=== PATIENT | female | born 1980 | race Caucasian/White ===

== ENCOUNTER 2017-01-21 13:45 | Inpatient (IN) ==
--- OUTSIDE RECORDS SUMMARY | 2017-01-21 13:50 | External Medical Summary | Continuity of Care Document ---
:1980 Author Organization [facility] Address [address] [place] [id number] Phone Care Team Providers Name Role Phone Kameron Holguin MD Unavailable Unavailable Allergies, Adverse Reactions, Alerts Substance Reaction Severity Status No Known Drug Allergies Unknown Active Medications Medication Instructions Dosage Effective Dates Status Comments (start - stop) CALCIUM-MAGNESIUM- - Active ZINC (unknown strength) Vitamin take 1 tablet by Not Available - Active tablet oral route every day Zoloft 50 mg take 1 tablet by 50 MG - Active tablet oral route every day Problems Condition Effective Dates (start - stop) Clinical Status Suprvsn of w grand - multiparity, first trimester Encntr screen for infections w sexl - mode of transmiss Encounter for screening for oth - infec/parastc diseases Encounter for suprvsn of normal - , first trimester Encounter for screening of - mother 8 weeks gestation of - Suprvsn of w grand - multiparity, second trimester Encounter for suprvsn of normal - , second trimester 26 weeks gestation of - Suprvsn of w grand - multiparity, first trimester Encounter for suprvsn of normal - , first trimester 12 weeks gestation of - Suprvsn of w grand - multiparity, second trimester 21 weeks gestation of - Suprvsn of w grand - multiparity, second trimester Encounter for suprvsn of normal - , second trimester 21 weeks gestation of - Encounter for suprvsn of normal - , first trimester 12 weeks gestation of - Encounter for suprvsn of normal - , second trimester 18 weeks gestation of - Procedures Procedure Date Unknown Results Test Name Date and Time Measure Units Reference Range Abnormal Flag Comments Unknown Advance Directives Directive Yes / No Effective Date File Name Unknown Encounters Encounter Practice Location Reason(s) Diagnoses Date Provider Care Team Description For Visit Members Susan Lucas Oct- [place] In Womens 3-201 Jayde. Marie PEREZ, 7 700 [facility] [address] [place] [address] [place], 120, [id number], Lucas, [facility], tel:[phone] , [place]. tel: [phone] Susan Starr of [place] Referring In Womens w grand 2-201 Jayde. Provider: ester Petersonarity, 7 700 Kameron [facility] Medical [place], 1522, [facility] [address] of Hari Gomez, normal , [address], [address], , second Sumit Lucas, [email or web address] [place], [address]. tel: gestation of [phone] tel: , [place]. [id number] tel: [phone] Susan Starr of [place] Referring In Womens w grand 3-201 Jayde. Provider: Marie PEREZ multiparity, 7 700 Kameron Box [facility] [place], 1522, [facility] [address] for supr[place] of Hari Gomez, normal , [address], [address], [id number], second Sumit Lucas, [id number] [place], [address]. tel: gestation of [phone] tel: , [place]. [id number] tel: [phone] Susan Lucas Suprvsn of Vince-0 [place] Referring In Womens Ultrasound w grand 3-201 Jayde. Provider: Marie PEREZ, multiparity, 7 700 Kameron Somers second Medical [place], 1522, [email or web address] weeks Center [facility] [address] [place], gestation of Hari Gomez, [address], [address], [id number], Sumit Lucas, [place], [address]. tel:[phone] tel:[phone] , [place]. [id number] tel: [phone] Susan Lucas Encounter for Porter-1 [place] Referring In Womens suprvsn of normal 2-201 Jayde. Provider: Marie PEREZ, , second 7 700 Kameron Somers weeks Medical [place], 1522, gestation of [address], Hari Gomez, [address], [address], [id number], Sumit Lucas, [place], [address]. tel:[phone] tel:[phone] , [place]. [id number] tel: [phone] Susan Lucas Suprvsn of May-0 [place] Referring In Womens w grand 1-201 Jayde. Provider: Marie PEREZ, multiparity, 7 700 Kameron Somers first Medical [place], 1522, trimesterEncounte Center [facility] [address] [place], r for suprvsn of Hari Gomez, normal , [address], [address], [id number], first [email or web address] Sumit Lucas, [place], [address]. tel: of [phone] tel:[phone] , [place]. [id number] tel: [phone] Susan Lucas Encounter for May-0 [place] Referring In Womens Ultrasound suprvsn of normal 1-201 Jayde. Provider: Marie PEREZ, , first 7 700 Kameron Somers [email or web address] weeks Medical [place], 1522, gestation of [place] [address] [address] [place], Hari Gomez, [address], [address], [id number], Sumit Lucas, [place], [address]. tel:[phone] tel: , . [id number] tel: [phone] Associates [facility] Suprvsn of Jun- [place] Referring In Womens w grand 3-201 Jayde. Provider: Health CHRIS, multiparity, 7 700 Peter [facility] Medical [place], 1522, trimesterEncntr Center [address], screen for , [facility], infections w sexl [address], [address], [id number], mode of Sumit [place], [place], [address]. tel: r for screening [phone] tel: for oth , [place]. [id number] infec/parastc tel: [facility] [phone] for suprvsn of normal , first trimesterEncounte r for screening of mother8 weeks gestation of Associates Lance [place] Referring In Womens 0-201 Jayde. Provider: Marie PEREZ, 4 700 Jayde [facility], 1522, Center [facility] [address], [facility], 120, [place] [id number], Lance [place] [address], Lance BLACK, tel: [phone] [place], , . [id number]. tel: tel: [phone] Associates Lance May- Edd In Womens 7-201 Marie. Marie PEREZ, 0 700 [facility] [address], [place] [address], [facility], 120, [id number], [facility] [place], tel: [phone] , . tel: [phone] Family History Family Member Diagnosis Age At Onset Mother Hypertension Maternal Grandfather Cardiovascular Disease Maternal aunt Uterine Cancer Mother Thyroid Disorder No family history of Lung Disease No family history of Ovarian Cancer Paternal Grandmother Cancer, colon No family history of Pulmonary Embolism No family history of Kidney Disease No family history of Breast Cancer No family history of Stroke No family history of Diabetes No family history of Epilepsy No family history of Venous Thrombosis Immunizations Vaccine Date Status Comments Unknown Payers Payer name Insurance type Covered alliance party ID Authorization(s) NICO VELASQUEZ [id number] Social History Type Description Quantity Date Captured Unknown Vital Signs Date / Height Weight BMI Pulse Blood Temperature Respiratory Body Head BMI Time: Rate Pressure Rate Surface Circumference percentile Area Unknown Chief Complaint And Reason For Visit Unknown Chief Complaint And Reason For Visit Reason For Referral Reason For Referral Unknown Plan Of Care Date Type Action Status Appointment Nai Rojas BOOKED Appointment Nai Rojas BOOKED Appointment Nai Rojas BOOKED Appointment Nai Rojas BOOKED Appointment Nai Rojas BOOKED Future Order: Radiology Order Complete OB Ultrasound > 14 Ordered Weeks (53044) Future Order: Radiology Order Nuchal Translucency ([id number]) Ordered Date Type Problem Goal Intervention Status Start Date Unknown. History Of Present Illness Encounter Date Complaint History Of Present Illness This patient has no known history of present illness Functional Status Encounter Date Functional Assessment Cognitive Assessment Unknown Medications Administered Medication Instructions Dosage Effective Dates (start - stop) Status Comments Drug Treatment Unknown Instructions Date Instruction Additional Information toxoplasmosis precautions (cats / raw meat) sexual activity exercise indications for ultrasound influenza vaccine environmental / work hazards travel tobacco (ask, advise, assess, assist and arrange) alcohol illicit / recreational drugs use of any medications (including supplements, vitamins, herbs, OTC drugs) smoking counseling HIV and other routine tests risk factors identified by history anticipated course of care nutrition and weight gain counseling, special diet domestic violence seat belt use childbirth classes / hospital facilities hospital registration genetic testing new ob handbook Zika virus assessment & precautions HIV and other routine tests risk factors identified by history anticipated course of care nutrition and weight gain counseling, special diet toxoplasmosis precautions (cats / raw meat) sexual activity exercise indications for ultrasound influenza vaccine environmental / work hazards travel use of any medications (including supplements, vitamins, herbs, OTC drugs) seat belt use hospital registration genetic testing
--- OUTSIDE RECORDS SUMMARY | 2017-01-21 13:50 | External Medical Summary | Continuity of Care Document ---
:1980 Author Organization [facility] Address [address] [place] [id number] Phone Care Team Providers Name Role Phone [...] Status Suprvsn of w grand - multiparity, second [...] weeks gestation of - Procedures Procedure Date OB Visit No Charge Hemoglobin count, colorimetric Hematocrit blood count Glucose test Venpnctr fngr/heel/ear stick routne Results Test Name Date and Time Measure Units Reference Range Abnormal Flag Comments Panel Description: Glucose [Mass/volume] in Serum or Plasma --1 hour post 50 g glucose PO GLUCOSE, 124 mg/dL <140 N Test performed at [facility] S[facility]EN 15:07:00 [id number] (50G)-[address] [place] [address]Xjqzmjth: GIGI SUH DO,MPH Panel Description: HEMOGLOBIN + HEMATOCRIT HEMOGLOBIN 15:07:00 10.3 g/dL 11.7-15.5 L HEMATOCRIT 15:07:00 30.3 % 35.0-45.0 L Test performed at [facility] [id number] [place] [address]Hffjqryt: GIGI SUH DO,MPH Advance Directives Directive Yes / No Effective Date File Name Unknown Encounters Encounter Practice Location Reason(s) Diagnoses Date Provider Care Team Description For Visit Members Associates [facility] Suprcarinen of [place] Referring In Womens w grand 2-201 Jayde. Provider: Health [place], multiparity, 7 700 Peter [address] [facility], 1522, [facility] [address] for suprvsn of Hari Gomez [place], normal , [address], [address], [id number], second Sumit Lucas, [id number] [place], [address]. tel:[phone] gestation of [id number] tel:[phone] , [place]. [id number] tel: [phone] Associates [facility] Suprvsn of Vince-0 [place] Referring In Womens w grand 3-201 Jayde. Provider: Marie PEREZ, multiparity, 7 700 Kameron Somers second Medical [place], 1522, [facility] [address] [place], r for suprvsn of Hari Gomez, normal , [address], [address], [id number], second Sumit Lucas, [id number] [place], [address]. tel: gestation of [phone] tel: , [place]. [id number] tel: [phone] Associates [facility] Suprvsn of Vince-0 [place] Referring In Womens Ultrasound w grand 3-201 Jayde. Provider: Marie PEREZ, multiparity, 7 700 Kameron Somers second [facility], 1522, [email or web address] weeks Center [address], gestation of Hari Gomez, [address], [address], [id number], Sumit Lucas, [place], [address]. tel:[phone] tel: , [place]. [id number] tel: [phone] Associates Lance Encounter for Porter-1 [place] Referring In Womens suprvsn of normal 2-201 Jayde. Provider: Marie PEREZ, , second 7 700 Kameron DUMAS Box [email or web address] weeks Medical [place], 1522, gestation of Center [address] [place], Hari Gomez, [address], [address], [id number], Sumit Lucas, [place], [address]. tel:[phone] tel: , [place]. [id number] tel: [phone] Associates [facility] Suprvsn of May-0 [place] Referring In Womens w grand 1-201 Jayde. Provider: Marie PEREZ, multiparity, 7 700 Kameron DUMAS Box first Medical [place], 1522, trimesterEncounte Center [address], r for suprvsn of Hari Gomez, normal , [address], [address], [id number], first [email or web address] Sumit [place], [place], [address]. tel: of [phone] tel: , [place]. [id number] tel: [phone] Associates Lance Encounter for [place] Referring In Womens Ultrasound suprvsn of normal 1-201 Jayde. Provider: Health [place], , first 7 700 Peter PO Box [email or web address] weeks Medical [place], 1522, gestation of Center [address], Hari Gomez [place], [address], [address], [id number], Shaila Lucasherson, [place], [address]. tel:[phone] tel: , [place]. [id number] tel: [phone] Susan Lucas Suprvsn of Jun- [place] Referring In Womens w grand 3-201 Jayde. Provider: Health CHRIS, multiparity, 7 700 Peter PO Box first Medical [place], 1522, trimesterEncntr Center [facility] S [place], screen for Hari [place], infections w sexl [address], [address], [id number], mode of Sumit [place], [place], [address]. tel: r for screening [phone] tel: for [facility] , [place]. [id number] infec/parastc tel: diseasesEncounter [phone] for suprvsn of normal , first trimesterEncounte r for screening of mother8 weeks gestation of Associates Lance [place] Referring In Womens 0-201 Jayde. Provider: Health CHRIS, 4 700 Jayde PO Box Medical [place] L, 1522, Center [facility] [address], [facility], 120, [place] [id number], [place] [address], Lance BLACK, tel:[phone] [place], [address] , [place]. [id number]. tel: tel: [phone] Susan Lucas May- Edd In Womens 7-201 Mraie. Health [place], 0 700 PO Box Medical [address], [place] [address], [facility], 120, [id number], [facility] [place], tel:[phone] , . tel:[phone] Family History Family Member Diagnosis Age At [...] Unknown Payers Payer name Insurance type Covered constitution party ID Authorization(s) [facility] [id number] Social History Type Description Quantity Date Captured Alcohol Use Details No Caffeine Use Details Unknown Tobacco Use Status Unknown Smoking Status Never smoker Vital Signs Date / Height Weight BMI [...] Complete OB Ultrasound > 14 Ordered Weeks (78074) Future Order: Radiology Order Nuchal Translucency ([id number]) Ordered Date Type Problem Goal Intervention Status [...] medications (including supplements, vitamins, herbs, OTC drugs) HIV and other routine tests risk factors identified by history anticipated course of care nutrition and weight gain counseling, special diet smoking counseling domestic violence seat belt use childbirth classes [...]
--- OUTSIDE RECORDS SUMMARY | 2017-01-21 13:50 | External Medical Summary | Continuity of Care Document ---
:1980 Author Organization [facility] Address [address] [place] [phone] Phone Care Team Providers Name Role Phone Kameron Holguin MD Unavailable Unavailable Allergies, Adverse Reactions, Alerts Substance Reaction Severity Status No Known Drug Allergies Unknown Active Medications Medication Instructions Dosage Effective Dates Status Comments (start - stop) Vitamin take 1 tablet by Not Available [...] - mode of transmiss Encounter for screening of - mother 8 weeks gestation of - Encounter for suprvsn of normal - , first trimester Encounter for screening for oth - infec/parastc diseases Suprvsn of w grand - multiparity, first [...] weeks gestation of - Procedures Procedure Date Ultrasound exam of preg uterus, complete Results Test Name Date and Time Measure Units Reference Range Abnormal Flag Comments Unknown Advance Directives Directive Yes / No Effective Date File Name Unknown Encounters Encounter Practice Location Reason(s) Diagnoses Date Provider Care Team Description For Visit Members Susan Jamesn of [place] Referring In Womens w grand 3-201 Jayde. Provider: Marie PEREZ, multiparity, 7 700 Kameron [address] Box second Medical [place], 1522, trimesterEncounte Center [address], for suprvsn of Hari Gomez, normal , [address], [address], [id number], second Sumit Lucas, [email or web address] [place], [address]. tel: gestation of [phone] tel: , [place]. [id number] tel: [phone] Susan Starr of [place] Referring In Womens Ultrasound w grand 3-201 Jayde. Provider: Marie PEREZ, multiparity, 7 700 Kameron [address] Box second Medical [place], 1522, [id number] weeks Center [address], gestation of Hari Gomez, [address], [address], [id number], Sumit Lucas, [facility] [place], [address]. tel:[phone] tel:[phone] , [place]. [id number] tel: [phone] Susan Lucas Encounter for [place] Referring In Womens suprvsn of normal 2-201 Jayde. Provider: Marie PEREZ, , second 7 700 Kameron PO Box [email or web address] weeks Medical [place], 1522, gestation of Center [address], Hari Gomez, [address], [address], [id number], Sumit Lucas, [facility] [place], [address]. tel:[phone] tel: , [place]. [id number] tel: [phone] Susan Jamesn of May-0 [place] Referring In Womens w grand 1-201 Jayde. Provider: Health CHRIS, multiparity, 7 700 Kameron Somers [facility] [place], 1522, trimesterEncounte Center [address] [place], r for suprvsn of Hari Gomez, normal , [address], [address], [id number], first [email or web address] Sumit [place], [place], [address]. tel: of [phone] tel: , [place]. [id number] tel: [phone] Associates Lance Encounter for July-0 [place] Referring In Womens Ultrasound suprvsn of normal 1-201 Jayde. Provider: Marie PEREZ, , first 7 700 Kameron Somers [id number] weeks Medical [place], 1522, gestation of Center [address] [place], Hari Gomez, [address], [address], [id number], Sumit Lucas, [facility] [place], [address]. tel:[phone] tel: , [place]. [id number] tel: [phone] Susan Lucas Suprvsn of Apr-0 [place] Referring In Womens w grand 3-201 Jayde. Provider: Marie PEREZ, multiparity, 7 700 [facility]on [facility] 1522, trimesterEncntr Center [address], screen for Hari Gomez, infections w sexl [address], [address], [id number], mode of Sumit Lucas, [facility] [place], [address]. tel: r for [phone] tel: screening of , [place]. [id number] mother8 weeks tel: gestation of [phone] pregnancyEncounte r for suprvsn of normal , first trimesterEncounte r for screening for oth infec/parastc diseases Susan Lucas Fe- [place] Referring In Womens 0-201 Jayde. Provider: Marie PEREZ, 4 700 Jayde PO Box Medical [place] L, 1522, Center [facility] [address] Medical [place], 120, [place] [id number], Hari Lucas 120, [place] Lance BLACK tel: [phone] [place], , [place]. [id number]. tel: tel: [phone] Associates Lance May- Edd In Womens 7-201 Marie. Health [place], 0 700 PO Box [facility] 15[address], [place] [address] [place], 120, [id number], Lucas, [place], tel: [phone] , [place]. tel: [phone] Family History Family Member Diagnosis Age At [...] Insurance type Covered alliance party ID Authorization(s) [facility] [id number] Social History Type Description Quantity Date Captured Unknown Vital Signs Date / Height Weight BMI Pulse Blood Temperature Respiratory Body Head BMI Time: Rate Pressure Rate Surface Circumference percentile Area Unknown Chief Complaint And Reason For Visit Unknown Chief Complaint And Reason For Visit Reason For Referral Reason For Referral Unknown Plan Of Care Date Type Action Status Appointment Nai Rojas BOOKED Future Order: Radiology Order Complete OB Ultrasound > 14 Ordered Weeks (58699) Future Order: Radiology Order Nuchal Translucency ([id number]) Ordered Date Type Problem Goal Intervention Status [...] and arrange) alcohol illicit / recreational drugs HIV and other routine tests risk factors identified by history anticipated course of care nutrition and weight gain counseling, special diet use of any medications (including supplements, vitamins, herbs, OTC drugs) smoking counseling domestic violence seat belt use [...]
--- OUTSIDE RECORDS SUMMARY | 2017-01-21 13:51 | External Medical Summary | Continuity of Care Document ---
:1980 Author Organization [facility] Allergies Active Description Code Type Severity Reaction Onset Reported/ Identified Relationship Clinical to Patient Status Yes No Known 40959 3 N/A N/A Drug 0 Allergies Medications Problems Date Dx Coded Attending Type Code Diagnosis Diagnosed By 07/26/2016 Jayde Dale Z34.81 Encounter for L suprvsn of normal , first trimester 07/26/2016 Jayde Dale Z3A.12 12 weeks gestation L of 09/27/2016 Jayde Dale O09.42 Suprvsn of L w grand multiparity, second trimester 09/27/2016 Jayde Dale Z3A.21 21 weeks gestation L of 12/08/2016 Jayde Dale O09.43 Suprvsn of L w grand multiparity, third trimester 12/08/2016 Jayde Dale O09.893 Supervision of L other high risk pregnancies, third trimester 12/08/2016 Jayde Dale Z3A.32 32 weeks gestation L of Procedures Code Description Performed By Performed On 07/26/2016 07334 Ultrasound, Nuchal Translucency Measurement 09/27/2016 60154 Ultrasnd exam of preg uterus, compl 12/08/2016 17553 biophys prfl w/o nstress test 12/08/2016 51802 Immuniz admnin, 1 vac, sngl/combo TDAP 12/08/2016 71713 VACCINE >7 IM Results Encounters ACCT No. Visit Discharge Status Pt. Type Provider Facility Loc./Unit Complaint Date/Time [id number] 12/22/2016 12/22/2016 [facility] Outpatient [place], 11:15:00 23:59:59 Jayde Piña [id number] 12/08/2016 12/08/2016 [facility] Outpatient [place], 10:10:00 23:59:59 Jayde Piña [id number] 12/08/2016 12/08/2016 [facility] Outpatient [place], 09:45:00 23:59:59 Jayde L [id number] 11/24/2016 11/24/2016 [facility] Outpatient [place], 10:30:00 23:59:59 Jayde L [id number] 10/28/2016 10/28/2016 [facility] Outpatient [place], 08:09:00 23:59:59 Jayde L [id number] 10/27/2016 10/27/2016 [facility] Outpatient [place], 10:15:00 23:59:59 Jayde L [id number] 09/27/2016 09/27/2016 [facility] Outpatient [place], 15:30:00 23:59:59 Jayde L [id number] 09/27/2016 09/27/2016 CLS Outpatient [place], 15:15:00 23:59:59 Jayde L [id number] 09/06/2016 09/06/2016 [facility] Outpatient [place], 11:30:00 23:59:59 Jayde L [id number] 07/30/2016 07/30/2016 [facility] Outpatient [place], 08:12:00 23:59:59 Jayde L [id number] 07/26/2016 07/26/2016 C[facility] Outpatient [place], 11:30:00 23:59:59 Jayde L [id number] 07/26/2016 07/26/2016 C[facility] Outpatient [place], 11:15:00 23:59:59 Jayde L [id number] 06/28/2016 06/28/2016 [facility] Outpatient [place], 15:00:00 23:59:59 Jayde L [id number] 01/12/2017 Document 10:15:00 Registration [id number] 01/05/2017 Document 11:15:00 Registration
--- OUTSIDE RECORDS SUMMARY | 2017-01-21 13:51 | External Medical Summary | Continuity of Care Document ---
:1980 Author Organization [facility] Address [address] [place] [id number] Phone Care Team Providers Name Role Phone [...] - Active tablet oral route every day iron ER 325 mg (65 take 1 by Oral route Not Available - Active mg iron) 2 times every day capsule,extended release Problems Condition Effective Dates (start - stop) Clinical Status Suprvsn of w grand - multiparity, third trimester Encounter for suprvsn of normal - , third trimester 32 weeks gestation of - Suprvsn of w [...] - Suprvsn of w grand - multiparity, third trimester Encounter for suprvsn of normal - , third trimester 30 weeks gestation of - Suprvsn of w [...] - Suprvsn of w grand - multiparity, third trimester Supervision of other high risk - pregnancies, third trimester 32 weeks gestation of - Suprvsn of w grand - multiparity, third trimester Supervision of other high risk - pregnancies, third trimester 34 weeks gestation of - Encounter for suprvsn of normal - , first trimester 12 weeks gestation of - Encounter for suprvsn of normal - , second trimester 18 weeks gestation of - Procedures Procedure Date Immuniz admnin, 1 vac, sngl/combo 19 Yrs + TDAP VACCINE >7 IM OB Visit No Charge Results Test Name Date and Time Measure Units Reference Range Abnormal Flag Comments Unknown Advance Directives Directive Yes / No Effective Date File Name Unknown Encounters Encounter Practice Location Reason(s) Diagnoses Date Provider Care Team Description For Visit Members Associates Lance [place] Referring In Womens w grand Jayde. Provider: Marie PEREZ, multiparity, 7 700 [facility], 1522, [facility] [address] of other high Hari Gomez, risk pregnancies, [address], [address], [id number], third [id number] Sumit [place], [place], [address]. tel:+[phone] of tel: , [place]. [id number] tel: [phone] Associates Lance Starr of Sep-1 [place] Referring In Womens w grand 3-201 Jayde. Provider: Marie PEREZ, multiparity, 7 700 Kameron Somers third [facility] [place], 1522, [facility] [address] for suprvsn of Hari Gomez, normal , [address], [address], [id number], third [id number] Sumit [place], [place], [address]. tel: of tel: , [place]. [id number] tel: [phone] Associates Lance Starr of Sep-1 [place] Referring In Womens Ultrasound w grand 3-201 Jayde. Provider: Marie PEREZ, multiparity, 7 700 Kameron Somers third [facility] [place], 1522, [facility] [address] [place], ion of other high Hari Gomez, risk pregnancies, [address], [id number], third [id number] Sumit [place], [place], [address]. tel: of tel: , [place]. [id number] tel: [phone] Susan Starr of Aug-3 [place] Referring In Womens w grand 0-201 Jayde. Provider: Mraie PEREZ, multiparity, 7 700 Kameron Somers [facility] [place], 1522, [facility] [address] for suprvsn of Hari Gomez, normal , [address], [address], [id number], third [id number] Sumit [place], [place], [address]. tel: of tel: , [place]. [id number] tel: [phone] Associates Lance Starr of Aug-0 [place] Referring In Womens w grand 2-201 Jayde. Provider: Marie PEREZ multiparity, 7 700 Kameron Somers [facility] [place], 1522, [facility] [address] [place], r for suprvsn of Hari Gomez, normal , [address], [address], [id number], second Sumit Lucas, [id number] [place], [address]. tel: gestation of [phone] tel: , [place]. [id number] tel: [phone] Susan Lucas Suprvsn of Sep-0 [place] Referring In Womens w grand 3-201 Jayde. Provider: Health PA, multiparity, 7 700 Kameron DUMAS Lizbet second Medical [place], 1522, [facility] [address] [place], r for suprvsn of Hari Gomez, normal , [address], [address], [id number], second Sumit Lucas, [email or web address] [place], [address]. tel: gestation of tel: , [place]. [id number] tel: [phone] Susan Lucas Suprcarinen of Sep-0 [place] Referring In Womens Ultrasound w grand 3-201 Jayde. Provider: Health PA, multiparity, 7 700 Kameron DUMAS Lizbet [facility], 1522, [id number] weeks Center [address] [place], gestation of Hari Gomez, [address], [address], [id number], Sumit Lucas, [place], [address]. tel: tel: , [place]. [id number] tel: [phone] Susan Lucas Encounter for Porter-1 [place] Referring In Womens suprvsn of normal 2-201 Jayde. Provider: Health PA, , second 7 700 Kameron DUMAS Box [id number] weeks Medical [place], 1522, gestation of Center [address] [place], Hari Gomez, [address], [address], [id number], Sumit Lucas, [place], [address]. tel: tel: , [place]. [id number] tel: [phone] Susan Lucas Suprcarinen of July-0 [place] Referring In Womens w grand 1-201 Jayde. Provider: Health CHRIS, multiparity, 7 700 Kameron Somers [facility], 1522, trimesterEncounte Center [address] [place], r for suprvsn of Hari Gomez, normal , [address], [address], [id number], first [id number] Sumit [place], [place], [address]. tel: of [phone] tel: , [place]. [id number] tel: [phone] Associates Lance Encounter for July-0 [place] Referring In Womens Ultrasound suprvsn of normal 1-201 Jayde. Provider: Marie PEREZ, , first 7 700 Kameron Somers [id number] weeks Medical [place], 1522, gestation of Center [address] [place], Hari Gomez, [address], [address], [id number], Sumit Lucas, [place], [address]. tel:[phone] tel: , [place]. [id number] tel: [phone] Associates Lance Suprvsn of Apr-0 [place] Referring In Womens w grand 3-201 Jayde. Provider: Marie PEREZ, multiparity, 7 700 Kameron Somers [facility], 1522, trimesterEncntr Center [address] [place], screen for Hari Gomez, infections w sexl [address], [address], [id number], mode [place], [place], [address]. tel: r for screening [phone] tel: for [facility] , . [id number] infec/parastc tel: [facility] [phone] for suprvsn of normal , first trimesterEncounte r for screening of mother8 weeks gestation of Associates Lance Apr- [place] Referring In Womens 0-201 Jayde. Provider: Marie PEREZ, 4 700 Jayde PO Box Medical [place], 1522, Center [facility] [place], Hari Gomez [place], 120, [place] , Hari Lucas 120, [place] Lance BLACK, tel: [phone] [place], , [place]. [id number]. tel: tel: [phone] Susan Lucas May- Edd In Womens 7-201 Marie. Health [place], 0 700 [address] [facility] 1522, [address] [place], 120, [id number], Lucas, SOFIA, tel: [phone] , . tel: [phone] Family History Family Member Diagnosis Age At [...] Venous Thrombosis Immunizations Vaccine Date Status Comments Tdap completed Source: New Immunization Record Payers Payer name Insurance type Covered democrat ID Authorization(s) [facility] [id number] [facility] [id number] Social History Type Description Quantity Date Captured [...] Of Care Date Type Action Status Appointment aNi Rojas BOOKED Future Order: Radiology Order Complete OB Ultrasound > 14 Ordered Weeks (87232) Future Order: Radiology Order Biophysical Profile without NST Ordered ([id number]) Future Order: Radiology Order Nuchal Translucency ([id number]) Ordered Date Type Problem Goal Intervention Status [...]
--- OUTSIDE RECORDS SUMMARY | 2017-01-21 13:51 | External Medical Summary | Continuity of Care Document ---
:1980 Author Organization [facility] Address [address] [place] [phone] Phone Care Team Providers Name Role Phone Kameron Holguin MD Unavailable Unavailable Allergies, Adverse Reactions, Alerts Substance Reaction Severity Status No Known Drug Allergies Unknown Active Medications Medication Instructions Dosage Effective Dates Status Comments (start - stop) CALCIUM-MAGNESIUM- - Active ZINC (unknown strength) iron ER 325 mg (65 take 1 by Oral route Not Available - Active mg iron) 2 times every day capsule,extended release Vitamin take 1 tablet by Not Available [...] suprvsn of normal - , second trimester Encounter for suprvsn of normal - , first trimester 12 weeks gestation of - Encounter for suprvsn of normal - , second trimester 18 weeks gestation of - Suprvsn of w grand - multiparity, third trimester Supervision of other high risk - pregnancies, third trimester 32 weeks gestation of - Suprvsn of w grand - multiparity, third trimester 32 weeks gestation of - Encounter for suprvsn of normal - , third trimester Procedures Procedure Date OB Visit No Charge Results Test Name Date and Time Measure Units Reference Range Abnormal Flag Comments Unknown Advance Directives Directive Yes / No Effective Date File Name Unknown Encounters Encounter Practice Location Reason(s) Diagnoses Date Provider Care Team Description For Visit Members Associates Lance Jamesn of Nov- [place] Referring In Womens w grand 3- Jayde. Provider: shiraz Peterson, 7 700 Kameron Somers third [id number] Medical [place], 1522, weeks gestation [address], of [place], [facility] [address], [address], [id number], r for suprvsn of Sumit Lucas, [place] , [place], [address]. tel:[phone] third trimester [phone] tel:[phone] , [place]. [id number] tel: [phone] Associates Lance Suprvsn of Sep-1 [place] Referring In Womens Ultrasound w grand 3-201 Jayde. Provider: shiraz Peterson, 7 700 Kameron DUMAS Box third Medical [place], 1522, trimesterSupervis Center [address] [place], ion of other high Hari Gomez, risk pregnancies, [address], [address], [id number], third [id number] Sumit [place], [place], [address]. tel: of [phone] tel: , [place]. [id number] tel: [phone] Associates Lance Suprcarinen of 3 [place] Referring In Womens w grand 0-201 Jadye. Provider: Health CHRIS, multiparity, 7 700 Kameron ALESIA Somers [facility], 1522, [facility] [address] [place], r for suprvsn of Hari Gomez, normal , [address], [address], [id number], third [id number] Sumit [place], [place], [address]. tel: of tel: , [place]. [id number] tel: [phone] Susan Lucas Suprcarinen of 0 [place] Referring In Womens w grand 2-201 Jayde. Provider: Marie PEREZ, multiparity, 7 700 Kameron DUMAS [facility], [facility] [address] [place], r for suprvsn of Hari Gomez, normal , [address], [address], [id number], second Sumit Lucas, [id number] [place], [address]. tel: gestation of [phone] tel: , [place]. [id number] tel: [phone] Susan Lucas Suprvsn of 0 [place] Referring In Womens w grand 3-201 Jayde. Provider: Marie PEREZ, multiparity, 7 700 Kameron Somers [facility], 1522, [id number] weeks Center [address] [place], gestation of Hari Gomez, pregnancyEncounte [address], [address], [id number], r for suprvsn of [place]it [place], [place] , [place], [address]. tel: second trimester tel: , US. [id number] tel: [phone] Associates Lance Suprvsn of Vince-0 [place] Referring In Womens Ultrasound w grand 3-201 Jayde. Provider: Marie PEREZ, multiparity, 7 700 Kameron DUMAS Box second [facility] [place], 1522, [id number] weeks Center [address] [place], gestation of Hari Gomez, [address], [address], [id number], Sumit Lucas, [place], [address]. tel:[phone] tel: [phone] , [place]. [id number] tel: [phone] Associates Lance Encounter for Porter-1 [place] Referring In Womens suprvsn of normal 2-201 Jayde. Provider: Marie PEREZ, , second 7 700 Kameron [address] [id number] weeks Medical [place], 1522, gestation of Center [address] [place], Hari Gomez, [address], [address], [id number], Sumit Lucas, [place], [address]. tel:[phone] tel:[phone] , [place]. [id number] tel: [phone] Susan Lucas Suprvsn of May-0 [place] Referring In Womens w grand 1-201 Jayde. Provider: Marie PEREZ, multiparity, 7 700 Kameron Somers first Medical [place], 1522, trimesterEncounte Center [address] [place], r for suprvsn of Hari Gomez, normal , [address], [address], [id number], first [id number] Sumit [place], [place], [address]. tel: of [phone] tel:[phone] , [place]. [id number] tel: [phone] Associates Lance Encounter for May-0 [place] Referring In Womens Ultrasound suprvsn of normal 1-201 Jayde. Provider: Marie PEREZ, , first 7 700 Kameron [address] [id number] weeks Medical [place], 1522, gestation of Center [facility] S [place], Hari Gomez, [address], [address], [id number], Sumit Lucas, [place], [address]. tel: [phone] tel: , . [id number] tel: [phone] Susan Lucas Suprvsn of Jun-0 [place] Referring In Womens w grand 3-201 Jayde. Provider: Health CHRIS, multiparity, 7 700 [facility] Medical [place], 1522, trimesterEncntr Center [address] [place], screen for , Hari [facility], infections w sexl [address], [address], [id number], mode of [place]it [place], [place], [address]. tel: r for screening [phone] tel: for [facility] , . [id number] infec/parastc tel: diseasesEnclos angeles community hospitaler [phone] for suprvsn of normal , first trimesterEncounte r for screening of mother8 weeks gestation of Associates Lance [place] Referring In Womens 0-201 Jayde. Provider: Marie PEREZ, 4 700 Jayde [facility] L, 1522, Center [address], [facility], 120, [place] [id number], Lance [place] [address], Lance BLACK, tel: [phone] [place], , . [id number]. tel: tel: [phone] Susan Lucas May- Edd In Womens 7-201 Marie. Health CHRIS, 0 700 [facility] Medical 1522, [place] [address], [facility], 120, [id number], SOFIA, tel: [phone] , . tel: [phone] Family History Family Member Diagnosis Age At [...] Record Payers Payer name Insurance type Covered constitution party ID Authorization(s) [facility] [id number] [facility] [id number] Social History Type Description Quantity Date Captured [...] Complete OB Ultrasound > 14 Ordered Weeks (96751) Future Order: Radiology Order Nuchal Translucency ([id number]) Ordered Future Order: Radiology Order Biophysical Profile without NST Ordered ([id number]) Date Type Problem Goal Intervention Status Start [...]
--- OUTSIDE RECORDS SUMMARY | 2017-01-21 13:51 | External Medical Summary | Continuity of Care Document ---
:1980 Author Organization [facility] Address [address] [place] [phone] Phone Care Team Providers Name Role Phone [...] Care Team Description For Visit Members Susan Starr of [place] Referring In Womens w grand 3-201 Jayde. Provider: Marie PEREZ, multiparity, 7 700 Kameron PO Box second Medical [place], 1522, trimesterEncounte Center [address], for suprvsn of Hari Gomez, normal , [address], [address], [id number], second Sumit Lucas, [id number] [place], [address]. tel: gestation of [phone] tel: , [place]. [id number] tel: [phone] Susan Starr of [place] Referring In Womens Ultrasound w grand 3-201 Jayde. Provider: Marie PEREZ, multiparity, 7 700 Kameron PO Box second Medical [place], 1522, [id number] weeks Center [address] [place], gestation of Hari Gomez, [address], [address], [id number], Sumit Lucas, [place], [address]. tel:[phone] tel:[phone] , [place]. [id number] tel: [phone] Susan Lucas Encounter for [place] Referring In Womens suprvsn of normal 2-201 Jayde. Provider: Marie PEREZ, , second 7 700 Kameron [address] [id number] weeks Medical [place], 1522, gestation of Center [address] [place], Hari Gomez, [address], [address], [id number], Sumit Lucas, [place], [address]. tel:[phone] tel: , [place]. [id number] tel: [phone] Susan Jamesn of [place] Referring In Womens w grand 1-201 Jayde. Provider: Health CHRIS, multiparity, 7 700 Kameron Somers [facility] [place], 1522, trimesterEncounte Center [address], r for suprvsn of Hari Gomez, normal , [address], [address], [id number], first [id number] Sumit [place], [place], [address]. tel: of [phone] tel: , [place]. [id number] tel: [phone] Susan Lucas Encounter for July-0 [place] Referring In Womens Ultrasound suprvsn of normal 1-201 Jayde. Provider: Health CHRIS, , first 7 700 Kameron Somers [id number] weeks Medical [place], 1522, gestation of Center [address] [place], Hari Gomez, [address], [address], [id number], Noelle Lucasson, [place], [address]. tel:[phone] tel: , [place]. [id number] tel: [phone] Susan Lucas Suprvsn of Apr-0 [place] Referring In Womens w grand 3-201 Jayde. Provider: Marie PEREZ, multiparity, 7 700 Kameron Somers [facility] 1522, trimesterEncntr Center [address], screen for Hari Gomez, infections w sexl [address], [address], [id number], mode of [place]it [place], [place], [address]. tel: r for [phone] tel: screening of , [place]. [id number] mother8 weeks tel: gestation of [phone] pregnancyEncounte r for suprvsn of normal , first trimesterEncounte r for screening for oth infec/parastc diseases Susan Lucas Apr- [place] Referring In Womens 0-201 Jayde. Provider: Marie PEREZ, 4 700 Jayde PO Box Medical [place], 1522, Center [facility] [address] Medical [place], 120, [place] , Hari Lucas 120, [place] Lance BLACK, tel: [phone] [place], , [place]. [id number]. tel: tel: [phone] Associates Lance May- Edd In Womens 7-201 Marie. Health [place], 0 700 PO Box [facility] 1522, [address], Hari [place], 120, [id number], Lucas, [place], tel: [phone] , . tel: [phone] Family History Family Member Diagnosis Age At [...] Unknown Payers Payer name Insurance type Covered green party ID Authorization(s) [facility] [id number] Social History Type Description Quantity Date Captured Alcohol Use Details No Caffeine Use Details Unknown Tobacco Use Status Unknown Smoking Status Never smoker Vital Signs Date / Height Weight BMI Pulse Blood Temperature Respiratory Body Head BMI Time: Rate Pressure Rate Surface Circumference percentile Area 166.40 27.6 / lbs 9 mm[Hg] 3:42 kg/m PM eter (2) Chief Complaint And Reason For Visit Unknown Chief Complaint And Reason For Visit Reason For Referral Reason For Referral Unknown Plan Of Care Date Type Action Status Appointment Nai Rojas BOOKED Future Order: Radiology Order Complete OB Ultrasound > 14 Ordered Weeks ([id number]) Future Order: Radiology Order Nuchal Translucency ([id number]) Ordered Date Type Problem Goal Intervention Status [...]
--- OUTSIDE RECORDS SUMMARY | 2017-01-21 13:51 | External Medical Summary | Continuity of Care Document ---
:1980 Author Organization [facility] Address [address] [place] [id number] Phone Care Team Providers Name Role Phone [...] third trimester 34 weeks gestation of - Suprvsn of w [...] suprvsn of normal - , third trimester 36 weeks gestation of - Suprvsn of w [...] Team Description For Visit Members Associates Lance Starr of [place] Referring In Womens w grand Jayde. Provider: Health CHRIS, multiparity, 7 700 [facility], 1522, [facility] [address] for suprvsn of Hari Gomez, normal , [address], [address], [id number], third [email or web address] Sumit [place], [place] weeks gestation [place], [place], [address]. tel: of [phone] tel: , [place]. [id number] tel: [phone] Associates Lance Jamesn of Sep-2 [place] Referring In Womens w grand 7-201 Jayde. Provider: Marie PEREZ, multiparity, 7 700 Kameron Somers [facility], 1522, [facility] [address], ion of other high Hari Gomez, risk pregnancies, [address], [address], [id number], third [email or web address] Sumit [place], [place], [address]. tel: of [phone] tel: , [place]. [id number] tel: [phone] Susan Starr of Sep-1 [place] Referring In Womens w grand 3-201 Jayde. Provider: Marie PEREZ, multiparity, 7 700 Kameron Somers [facility], 1522, [facility] Center [address], alexis for suprvsn of Hari Gomez, normal , [address], [address], [id number], third [email or web address] Sumit [place], [place], [address]. tel: of [phone] tel: , [place]. [id number] tel: [phone] Susan [place] Suprcarinen of Sep-1 [place] Referring In Womens Ultrasound w grand 3-201 Jayde. Provider: Marie PEREZ, multiparity, 7 700 [facility], [facility] [address], ion of other high Hari Gomez, risk pregnancies, [address], [address], [id number], third [email or web address] Sumit [place], [place], [address]. tel: of [phone] tel: , [place]. [id number] tel: [phone] Susan Lucas Suprcarinen of Aug-3 [place] Referring In Womens w grand 0-201 Jayde. Provider: Marie PEREZ, multiparity, 7 700 Kameron Somers third [facility] [place], 1522, [facility] Center [address], r for suprvsn of Hari Gomez, normal , [address], [address], [id number], third [email or web address] Sumit [place], [place], [address]. tel: of [phone] tel: , [place]. [id number] tel: [phone] Associates Lance Suprvsn of Oct-0 [place] Referring In Womens w grand 2-201 Jayde. Provider: Health CHRIS, multiparity, 7 700 Kameron Somers second [facility] [place], 1522, [facility] [address], alexis for suprvsn of Hari Gomez, normal , [address], [address], [id number], second Sumit [place], [place] [email or web address] [place], [address]. tel: gestation of [phone] tel: , [place]. [id number] tel: [phone] Susan [place] Sup[place] of Sep-0 [place] Referring In Womens w grand 3-201 Jayde. Provider: Marie PEREZ, multiparity, 7 700 Kameron Somers second [facility] [place], 1522, [facility]En[facility] Center [address], r for suprvsn of Hari Gomez, normal , [address], [address], [id number], second Sumit [place], [place] [email or web address] [place], [address]. tel: gestation of [phone] tel: , [place]. [id number] tel: [phone] Susan [place] Suprvsn of Sep-0 [place] Referring In Womens Ultrasound w grand 3-201 Jayde. Provider: Marie PEREZ, multiparity, 7 700 Kameron Somers second [facility] [place], 1522, [email or web address] weeks Center [address] [place], gestation of Hari Gomez, [address], [address], [id number], Sumit [place], [place], [address]. tel: tel: , [place]. [id number] tel: [phone] Associates Lance Encounter for Porter-1 [place] Referring In Womens suprvsn of normal 2-201 Jayde. Provider: Health CHRIS, , second 7 700 Kameron [address] [email or web address] weeks Medical [place], 1522, gestation of Center [address], Hari Gomez, [address], [address], [id number], Sumit Lucas, [facility] [place], [address]. tel:[phone] tel: , [place]. [id number] tel: [phone] Associates Lance Suprvsn of May-0 [place] Referring In Womens w grand 1-201 Jayde. Provider: Marie PEREZ, multiparity, 7 700 Kameron Somers [facility], 1522, trimesterEncloma linda [facility] [place] [id number] [place], r for suprvsn of Hari Gomez, normal , [address], [address], [id number], first [email or web address] Sumit [place], [place], [address]. tel: of [phone] tel:[phone] , [place]. [id number] tel: [phone] Associates Lance Encounter for May-0 [place] Referring In Womens Ultrasound suprvsn of normal 1-201 Jayde. Provider: Marie PEREZ, , first 7 700 Kameron DUMAS Box [email or web address] weeks Medical [place], 1522, gestation of Center [address], Hari Gomez, [address], [address], [id number], Sumit Lucas, [facility] [place], [address]. tel: [phone] tel: , [place]. [id number] tel: [phone] Associates Lance Suprvsn of Apr-0 [place] Referring In Womens w grand 3-201 Jayde. Provider: Marie PEREZ, multiparity, 7 700 Kameron PO Box [facility], trimesterEncntr Center [address], screen for Hari Gomez, infections w sexl [address], [address], [id number], mode of Sumit [place], [place], [address]. tel: r for screening [phone] tel: for [facility] , . [id number] infec/parastc tel: diseasesEncounter [phone] for suprvsn of normal , first trimesterEncounte r for screening of mother8 weeks gestation of Associates Lance [place] Referring In Womens 0-201 Jayde. Provider: Health CHRIS, 4 700 Jayde PO Box Medical [facility], 1522, Center [address], [facility], 120, [place] [id number], [place] [address], [place], Lance, tel: [phone] [place], , . [id number]. tel: tel: [phone] Associates Lance May- Edd In Womens 7-201 Marie. Health CHRIS, 0 700 PO [facility] 1522, [place] [address], [facility], 120, [id number], [facility] [place], tel: [phone] , . tel: [phone] Family History Family Member Diagnosis Age At [...] name Insurance type Covered democrat ID Authorization(s) [facility] [id number] [facility] [id number] Social History Type Description Quantity Date Captured [...] Complete OB Ultrasound > 14 Ordered Weeks (62976) Future Order: Radiology Order Biophysical Profile without NST Ordered ([id number]) Future Order: Radiology Order Nuchal Translucency ([id number]) Ordered Date Type Problem Goal Intervention Status [...] nutrition and weight gain counseling, special diet HIV and other routine tests risk factors [...]
--- OUTSIDE RECORDS SUMMARY | 2017-01-21 13:51 | External Medical Summary | Continuity of Care Document ---
:1980 Author Organization [facility] Address [address] [place] [phone] Phone Care Team Providers Name Role Phone [...] weeks gestation of - Procedures Procedure Date biophys prfl w/o nstress test Results Test Name Date and Time Measure Units Reference Range Abnormal Flag Comments Unknown Advance Directives Directive Yes / No Effective Date File Name Unknown Encounters Encounter Practice Location Reason(s) Diagnoses Date Provider Care Team Description For Visit Members Associates Lance Starr of [place] Referring In Womens w grand 7201 Jayde. Provider: Health CHRIS, multiparity, 7 700 [facility] [place], 1522, [facility] [address] of other high Hari Gomez, risk pregnancies, [address], [address], [id number], third [email or web address] Sumit [place], [place], [address]. tel:[phone] of [phone] tel: [phone] , [place]. [id number] tel: [phone] Associates Lance Starr of Sep-1 [place] Referring In Womens w grand 3-201 Jayde. Provider: Marie PEREZ, multiparity, 7 700 Kameron Liz[facility], 1522, [facility] [address] for suprvsn of Hari Gomez, normal , [address], [address], [id number], third [email or web address] Sumit [place], [place], [address]. tel: of [phone] tel:[phone] , [place]. [id number] tel: [phone] Associates Lance Starr of Sep-1 [place] Referring In Womens Ultrasound w grand 3-201 Jayde. Provider: Marie PEREZ, multiparity, 7 700 Kameron Lizbet [facility], 1522, trimesterSupervis [place] [address], ion of other high Hari Gomez, risk pregnancies, [address], [address], [id number], third [email or web address] Sumit [place], [place], [address]. tel: of [phone] tel:[phone] , [place]. [id number] tel: [phone] Susan Starr of Oct-3 [place] Referring In Womens w grand 0-201 Jayde. Provider: Marie PEREZ, multiparity, 7 700 Kamer[address] Lizbet [facility], 1522, [facility] [address] for suprvsn of Hari Gomez, normal , [address], [address], [id number], third [id number] Sumit [place], [place], [address]. tel: of [phone] tel:[phone] , [place]. [id number] tel: [phone] Associates Lance Starr of Aug-0 [place] Referring In Womens w grand 2-201 Jayde. Provider: Marie PEREZ, multiparity, 7 700 [facility], 1522, [facility] [address] for suprvsn of Hari Gomez, normal , [address], [address], [id number], second Sumit [place], [email or web address] [place], [address]. tel: gestation of tel: , US. 8469802 tel: [phone] Susan [place] Suprvsn of Sep-0 [place] Referring In Womens w grand 3-201 Jayde. Provider: Marie PEREZ, multiparity, 7 700 Kameron DUMAS Lizbet second Medical [place], 1522, trimesterEncounte Center [address], r for suprvsn of Hari oGmez, normal , [address], [address], [id number], second Sumit [place], [email or web address] [place], [address]. tel: gestation of tel: , US. 8670024 tel: [phone] Susan Lucas Suprvsn of Sep-0 [place] Referring In Womens Ultrasound w grand 3-201 Jayde. Provider: Marie PEREZ, multiparity, 7 700 Kameron DUMAS [facility], 1522, [email or web address] weeks Center [address], gestation of Hari Goemz, [address], [address], [id number], Sumit Lucas, [facility] [place], [address]. tel: tel: , [place]. 9873044 tel: [phone] Susan [place] Encounter for Porter-1 [place] Referring In Womens suprvsn of normal 2-201 Jayde. Provider: Marie PEREZ, , second 7 700 Kameron ALESIA Somers [email or web address] weeks Medical [place], 1522, gestation of Center [address], Hari Gomez, [address], [address], [id number], Sumit Lucas, [facility] [place], [address]. tel: tel: , [place]. 6378810 tel: [phone] Susan Lucas Suprvsn of July-0 [place] Referring In Womens w grand 1-201 Jayde. Provider: Marie PEREZ, multiparity, 7 700 Kameron Lizbet [facility] [place], 1522, trimesterEncounte Center [address], r for suprvsn of Hari Gomez, normal , [address], [address], [id number], first [email or web address] Sumit [place], [place], [address]. tel: of [phone] tel: , [place]. [id number] tel: [phone] Susan [place] Encounter for July- [place] Referring In Womens Ultrasound suprvsn of normal 1-201 Jayde. Provider: Health PA, , first 7 700 Kameron DUMAS Box [email or web address] weeks Medical [place], 1522, gestation of Center [address], Hari Gomez, [address], [address], [id number], Sumit Lucas, [facility] [place], [address]. tel:[phone] tel: , US. [id number] tel: [phone] Susan Lucas Suprvsn of Apr-0 [place] Referring In Womens w grand 3-201 Jayde. Provider: Health PA, multiparity, 7 700 Kameron [facility] [place], 1522, trimesterEncntr Center [address], screen for Hari Gomez, infections w sexl [address], [address], [id number], mode of Sumit [place], [place], [address]. tel: r for screening [phone] tel: for ot , [place]. [id number] infec/parastc tel: diseasesEncounter [phone] for suprvsn of normal , first trimesterEncounte r for screening of mother8 weeks gestation of Susan Lucas Apr- [place] Referring In Womens 0-201 Jayde. Provider: Health PA, 4 700 Jayde PO Box Medical [place] L, 1522, Center [address], Hari BLACK, 120, Center , Hari Lucas 120, [place] Lance BLACK, tel:[phone] [place], , [place]. [id number]. tel: tel: [phone] Associates Lance Mar- Edd In Womens 7-201 Marie. Health [place], 0 700 PO [facility] 15[address], [address], [facility] [place], 120, [id number], [place], [place], tel:[phone] , . tel: [phone] Family History Family Member Diagnosis Age At [...] name Insurance type Covered democrat ID Authorization(s) [facility] [id number] [facility] [id number] Social History Type Description Quantity Date Captured [...] Nai Rojas BOOKED Future Order: Radiology Order Biophysical Profile without NST Ordered ([id number]) Future Order: Radiology Order Complete OB Ultrasound > 14 Ordered Weeks ([id number]) Future Order: Radiology Order Nuchal Translucency ([id number]) Ordered Date Type Problem Goal Intervention Status [...]
[2017-01-21] MEDS ORDERED: CARBOPROST 250 MCG/ML INJECTION IM PRN (14:15)
[2017-01-21] MEDS ORDERED: CALCIUM CARBONATE Chewable 500mg TABLET PO PRN ×2 (14:15→22:26)
[2017-01-21] MEDS ORDERED: MAG-AL + SIM ORAL LIQUID 30ml PO PRN ×2 (14:15→22:26)
[2017-01-21] MEDS ORDERED: LIDOCAINE 1% (10mg/ml) 2mL INJ PF SDV ID PRN (14:15)
[2017-01-21] MEDS ORDERED: ACETAMINOPHEN 500 MG TABLET PO PRN ×2 (14:15→22:26)
[2017-01-21] MEDS ORDERED: METHYLERGONOVINE 0.2 MG/ML INJECTION IM PRN (14:15)
[2017-01-21] MEDS: LR 1,000 ML IV PRN ×2 (14:35→16:00)
[2017-01-21 14:40] VITALS: BMI 31.5
--- NOTE | 2017-01-21 15:22 | Anesthesia Preoperative Report ---
Anesthesia Epidural/Spinal Rec - Date and Time Date: 01/21/17 Preoperative Diagnosis: 38+2, Procedure: Labor Epidural Plan: Epidural - Vital Signs Vital Signs: Temperature 97.9 F 01/21/17 14:28 Pulse Rate 83 01/21/17 14:28 Respiratory Rate 16 01/21/17 14:28 Blood Pressure 131/78 01/21/17 14:28 Pulse Oximetry 98 01/21/17 14:28 /Para: P:5 - Medictaions & Allergies Inpatient Medications: Current Medications Acetaminophen (Tylenol) 500 - 1,000 mg PO Q4H PRN PRN Reason: Pain Al Hydroxide/Mg Hydroxide (Maalox Plus) 30 ml PO Q3H PRN PRN Reason: Indigestion Calcium Carbonate (Tums) 500 - 1,000 mg PO Q2H PRN PRN Reason: Indigestion Carboprost Tromethamine (Hemabate) 250 mcg IM O PRN PRN Reason: .Downtime Lactated Ringer's (Lactated Ringers) 1,000 mls @ 999 mls/hr IV .Q1H1M PRN Lidocaine HCl (Xylocaine-Mpf 1% Vial) 0.2 mg ID O PRN PRN Reason: IV Start Methylergonovine Maleate (Methergine) 0.2 mg IM O PRN Misoprostol (Cytotec) 800 mcg MA ONCE PRN Allergies/Adverse Reactions: Allergies Allergy/AdvReac Type Severity Reaction Status Date / Time No Known Allergies Allergy Unknown Verified 12/02/09 10:25 - Home Medications Home Medications: Home Medications Medication Instructions Recorded Confirmed Type Vits W-Ca,Fe,Fa(<1MG) 1 tab PO DAILY #0 12/17/09 History ( Vitamins) Calcium DAILY 01/19/17 History Iron DAILY 01/19/17 History Zoloft 01/19/17 History - Medical History Neuro/Musculoskeletal: Reports: Depression - Surgical History Musculoskeletal Surgery/Tx: Reports: Knee Arthroscopy Anesthesia Reactions: None Hx Family Anesthesia Reaction: No - Pertinent Findings Lab Data: CBC and BMP 01/21/17 14:33 - Physical Exam Respiratory Exam: lungs clear, bilateral breath sounds equal Cardiovascular Exam: regular rate and rhythm, no murmur - Airway Assessment Mallampati Score: II TMD: 3 Fingerbreadths Neck Extension: good Overall Assessment: may be difficult intubation - ASA ASA Score: 2 - Discussion Discussion: Discussed risks/options/alternatives of anesthesia and questions answered. Patient consents. Nursing pain assessment noted. Attestation Statement: Prior to the delivery of any anesthetic medication, I examined the patient, developed the plan, obtained the patient's consent and discussed the risk and benefits of the procedure with the patient/guardian.
[2017-01-21] MEDS ORDERED: NALOXONE 0.4 MG/ML INJECTION IVP PRN (15:23)
[2017-01-21] MEDS ORDERED: ROPIVACAINE 1% 10MG/ML INJ 200 MG, SUFentanil 50 MCG in NS 100 ML EPI PRN (15:23)
[2017-01-21] MEDS ORDERED: DiphenhydrAMINE 50 MG/ML INJECTION IVP PRN (15:23)
[2017-01-21] MEDS ORDERED: ONDANSETRON 4 MG/2 ML INJECTION IVP PRN (15:23)
[2017-01-21] MEDS ORDERED: D5LR 1,000 ML IV PRN (18:29)
[2017-01-21] MEDS ORDERED: OXYTOCIN DRIP 30 UNIT/500 ML ML IV PRN (18:29)
[2017-01-21] MEDS: OXYTOCIN DRIP 30 UNIT/500 ML ML IV SCH ×2 (20:03→23:00)
[2017-01-21] MEDS ORDERED: BENZOCAINE 20% SPRAY 0.5 ML MM ONE (22:26)
[2017-01-21] MEDS ORDERED: HYDROCORTISONE 2.5% CREAM 30gm RECTALLY PRN (22:26)
[2017-01-21] MEDS ORDERED: MEASLES-MUMPS-RUBELLA VACCINE 0.5ml INJECTION SQ ONE (22:26)
[2017-01-21] MEDS ORDERED: DiphenhydrAMINE 25 MG CAPSULE PO PRN (22:26)
[2017-01-21] MEDS: IBUPROFEN 800 MG TABLET PO PRN (22:30)
[2017-01-22] MEDS: HYDROCODONE/APAP 5mg/325mg TABLET PO PRN ×3 (08:10→22:08)
[2017-01-22] MEDS: IBUPROFEN 800 MG TABLET PO PRN ×2 (08:11→16:16)
[2017-01-22] MEDS: DOCUSATE CALCIUM 240 MG CAPSULE PO SCH (09:37)
--- NOTE | 2017-01-22 10:48 | Labor and Delivery Note ---
DATE OF DELIVERY: 01/21/2017 DIAGNOSES 1. 36-year-old female, G7, P5, at 38.2 weeks gestational age. 2. Vaginal bleeding. 3. Spontaneous labor. 4. Epidural anesthesia. 5. Artificial rupture of membranes. 6. Spontaneous vaginal delivery. 7. Pitocin augmentation to 4 milliunits. 8. Shoulder cord. 9. Male infant, 8/8 Apgars, 3305 g (Sheldon). 10. Second-degree laceration - repaired. BRIEF DESCRIPTION This is a patient of Dr. Dale that came in today thinking her water was broken. The nurse reported to Dr. Maciel that the patient had passed an orange- size clot. A speculum exam was done and dark red blood was seen. heart tones were reactive and cervix was 3/50/-3, so we admitted her. Her contractions became stronger and at 4:45 p.m. the cervix was 4-5 cm and I performed an AROM with clear fluid being noted. By that time she had an epidural in place and a Yee catheter in place. Contractions remained pretty far apart and she didn't change much, so we did Pitocin augmentation but only had to go to 4 milliunits a minute before she changed to 8 cm and then complete dilation. Infant was OP and rotated to OA. There were decelerations intermittently with the contractions and at delivery we discovered a shoulder cord. Once we were completely dilated we began pushing and with the first contraction we had a spontaneous vaginal delivery from the OA position. Infant was bulb suctioned after delivery of the head and then again after delivery of the body. Cord was allowed to drain for 2 minutes before it was clamped and cut. The infant was initially placed on mother's abdomen and then went to the isolette. Placenta delivered spontaneously. The second-degree laceration was repaired with 2-0 Vicryl. A few interrupted 3-0 chromic sutures were used to bring the skin edges together on the external aspect. EBL was 250. Mother is maternal blood type O+, rubella nonimmune and GBS negative, so an MMR vaccine was ordered. At time of dictation mother and infant are doing well. [facility]
--- NOTE | 2017-01-22 12:24 | Progress Note ---
OB PP Progress Note Free Text - Date Date: 01/22/17 - Progress Note Progress Note: vss af hgb ok no c/o cont routine care path q&a-krb
[2017-01-22] MEDS: OXYTOCIN DRIP 30 UNIT/500 ML ML IV SCH (22:19)
[2017-01-23] MEDS: IBUPROFEN 800 MG TABLET PO PRN ×2 (01:01→08:49)
[2017-01-23 07:30] VITALS: O2SAT 97
[2017-01-23] MEDS: DOCUSATE CALCIUM 240 MG CAPSULE PO SCH (08:48)
[2017-01-23] MEDS: HYDROCODONE/APAP 5mg/325mg TABLET PO PRN ×2 (08:48→14:16)
--- NOTE | 2017-01-23 13:13 | Progress Note ---
OB PP Progress Note Free Text - Date Date: 01/23/17 - Progress Note Progress Note: vss af no c/o plan dc to home today instructions reviewed f/u 6 wks rx made q&a w/ pt &
[2017-01-23 13:59] VITALS: BP 122/73; PULSE 86; RESP 16; TEMP 97.9
== END 2017-01-23 15:05 | disposition home or self-care (01) | DRG 774 ==
LOC: OBOBS 13:45 → MC 13:47
PROVIDERS: ADMIT Obstetrics & Gynecology; ATTEND Obstetrics & Gynecology